=== PATIENT | male | born 1985 | race Caucasian/White ===

== ENCOUNTER 2018-04-04 10:55 | Emergency (ER) | payer OTHER ==
[~2018-04-04] VITALS: Ht 177.8 cm; Wt 75.0 kg
[2018-04-04 11:17] VITALS: BP 126/78
[2018-04-04] MEDS ORDERED: AMOX-101 PO (11:34)
== END 2018-04-04 11:56 | disposition home or self-care (01) ==
LOC: ER 10:56
DX: J02.0 Streptococcal pharyngitis (principal); Z79.899 Other long term (current) drug therapy
CPT/HCPCS: 99283

== ENCOUNTER 2019-10-23 09:34 | Emergency (ER) | payer OTHER, MEDICAID ==
[~2019-10-23] VITALS: Ht 180.3 cm; Wt 57.0 kg
[2019-10-23 09:50] VITALS: BP 124/83
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
[2019-10-23] MEDS ORDERED: DICL100G30 TOP (10:27)
== END 2019-10-23 10:47 | disposition home or self-care (01) ==
LOC: ER 09:35
DX: R07.89 Other chest pain (principal); Z79.899 Other long term (current) drug therapy; V43.52XA Car driver injured in collision with other type car in traffic accident, initial encounter; Y93.89 Activity, other specified; Y92.481 Parking lot as the place of occurrence of the external cause; Y99.8 Other external cause status
CPT/HCPCS: 71046; 99283